=== PATIENT | male | born 2000 | race Caucasian/White ===

== ENCOUNTER 2023-11-30 12:28 | Emergency (ER) | payer BC, SELFPAY ==
--- NOTE | ~2023-11-30 | XR_ITS ---
XR knee LT min 4V 11/30/2023 12:54 INDICATION: Left knee pain PROCEDURE: 4 views left knee COMPARISON: No prior studies for comparison. FINDINGS: Fracture, dislocation or subluxation is not identified. There is moderate soft tissue swell ing lateral to the knee. No significant joint effusion. No foreign bodies are identified. IMPRESSION: 1: NO ACUTE BONE OR JOINT ABNORMALITY IDENTIFIED. Reviewed, dictated and finalized at location B.
[2023-11-30 12:39] VITALS: BP 116/63; PULSE 79; RESP 16; TEMP 36.7; O2SAT 98
--- NOTE | 2023-11-30 12:40 | ED.LOWEXIN ---
HPI - Extremity Injury (Lower) General Chief Complaint: Extremity Injury, Lower Stated Complaint: Left Knee Pain Time Seen by Provider: 11/30/23 12:47 Source: patient, RN notes reviewed and old records reviewed Mode of arrival: ambulatory Limitations: no limitations History of Present Illness HPI Narrative: 23 year old male who presents to [facility] care with complaints of left knee pain,swelling and redness of his left knee since evening. Patient denies any known specific injury was kneeling on rough terrain on ruining under ground cables and that evening swelling and pain started. He reports that he has been taking Ibuprofen and icing his knee frequently. Patient has most discomfort to lower left and lateral aspect of his left knee with warmth, redness and swelling present,to entire left knee. Patient denies any fevers. MD complaint: other (left knee pain swelling warmth and redness) Onset (ago): day(s) (day 4 of symptoms) Severity: moderate Treatments prior to arrival: cold therapy and NSAIDS Related Data Home Medications Medication Instructions Recorded Confirmed No Home Medications 11/30/23 11/30/23 Allergies Allergy/AdvReac Type Severity Reaction Status Date / Time No Known Allergies Allergy Verified 11/30/23 12:31 Review of Systems Review of Systems: CONSTITUTIONAL: Denies fever, chills, or sweats. EYES: Denies visual changes, redness, or discharge. ENT: Denies rhinorrhea, congestion, sore throat, or otalgia. CARDIOVASCULAR: Denies chest pain, palpitations, or edema. RESPIRATORY: Denies cough or dyspnea. GASTROINTESTINAL: Denies abdominal pain, nausea, vomiting, or diarrhea. GENITOURINARY: Denies dysuria or hematuria. SKIN: Denies rash or itching. MUSCULOSKELETAL: Denies back pain,positive for left lower and lateral knee pain and swelling or myalgia. NEUROLOGIC: Denies headache, numbness, or weakness. PSYCHIATRIC: Denies anxiety or depression. All systems reviewed & are unremarkable except as noted in HPI and below PMFSH Past Medical History Medical History (Updated 12/01/23 @ 13:05 by Gaby Shay NP) No pertinent past medical history Surgical History Surgical History (Updated 12/01/23 @ 12:53 by Gaby Shay NP) No history of previous surgery Social History Social History (Updated 12/01/23 @ 12:51 by Gaby Shay NP) Smoking status: Current some day smoker Tobacco type: cigarettes Alcohol intake: current Alcohol use details: social Substance use type: does not use Gender identity (if verbalized by the patient): Male Comments At time of signature, agree with nursing past medical, surgical, social and family history. There is no relevant family history pertinent to the presenting complaint Exam Narrative: GENERAL: Well-appearing, well-nourished, and in no acute distress. HEAD: Normocephalic, atraumatic. EYES: PERRLA and EOMI. ENT: Nares clear, no rhinorrhea or epistaxis. Mucous membranes moist. NECK: Supple no lymphadenopathy. CHEST: Clear to auscultation. No respiratory distress.SA2 98% on room air HEART: Regular rate and rhythm. No murmur heard. Normal peripheral pulses. ABDOMEN: Soft, nontender, nondistended, normal active bowel sounds. EXTREMITIES: Normal range of motion. No edema.Exception noted to left knee with redness, warmth,pain and swelling, greatest area of pain noted to lower and lateral left knee area, circulation, sensation intact to left leg,Patient reports hard to bend his left knee yesterday but iced extensively yesterday and bending has improved today, limping noted with ambulation.Swelling present entire left knee. SKIN: Warm, dry, no rash.n NEURO: No focal deficits. Alert and oriented x3. Course Course Emergency Course: Patient is aware of diagnosis, understands and agrees to treatment plan.? Anticipatory guidance given.? Patient agrees to follow-up as directed and is aware of reasons to seek care at the emergency de
[2023-11-30 12:46] VITALS: BP 116/63; PULSE 79; RESP 16; TEMP 36.7; O2SAT 98
== END 2023-11-30 13:36 | disposition home or self-care (01) ==
PROVIDERS: Emergency Provider Registered Nurse; PCP Emergency Medicine
DX: M25.562 Pain in left knee (principal); F17.210 Nicotine dependence, cigarettes, uncomplicated
CPT/HCPCS: 73562; 73564; 99203; G0463